=== PATIENT | male | born 1980 | race Caucasian/White ===

== ENCOUNTER 2021-03-18 23:53 | Emergency (ER) | payer BC, MEDICAID ==
[2021-03-18] MEDS ORDERED: Acetaminophen/HYDROcodone 325-5 MG Tab PO ONE (23:54)
[2021-03-19] MEDS ORDERED: Ketorolac 30 MG/ML SDV IVPUSH ONE (00:04)
[2021-03-19] MEDS ORDERED: Ondansetron 4 MG/2 ML SDV IVPUSH ONE (00:04)
--- NOTE | 2021-03-19 00:09 | EDM.PDOC ---
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, no work x 2d d/t pain here with sig other soft daily BM without change no dysuria, no freq no f/c/d feels fine otherwise h/o migraines, none x 6m, on propranolol in past no daily meds RIH repair in past, did have bone graft from R pelvis to R knee - Related Data Allergies Allergy/AdvReac Type Severity Reaction Status Date / Time No Known Allergies Allergy Verified 03/19/21 00:56 Home Meds: Home Meds Hydrocodone/Acetaminophen [Hydrocodon-Acetaminophen 5-325] 1 each PO Q6H PRN #12 tablet 03/19/21 [Rx] ED ROS GENERAL - Review of Systems Review Of Systems: See Below Constitutional: Reports: No Symptoms HEENT: Reports: No Symptoms Respiratory: Reports: No Symptoms Cardiovascular: Reports: No Symptoms Endocrine: Reports: No Symptoms GI/Abdominal: Reports: Abdominal Pain, Nausea. Denies: Vomiting : Reports: No Symptoms Musculoskeletal: Reports: No Symptoms Skin: Reports: No Symptoms Neurological: Reports: No Symptoms Psychiatric: Reports: No Symptoms Hematologic/Lymphatic: Reports: No Symptoms Immunologic: Reports: No Symptoms ED EXAM, GI/ABD - Physical Exam Exam: See Below Exam Limited By: No Limitations General Appearance: Alert, WD/WN, No Apparent Distress Nose: Normal Inspection Throat/Mouth: Normal Inspection, Normal Lips Head: Atraumatic, Normocephalic Neck: Normal Inspection, Supple, Non-Tender, Full Range of Motion. No: Lymphadenopathy (R), Lymphadenopathy (L) Respiratory/Chest: No Respiratory Distress, Lungs Clear, Normal Breath Sounds Cardiovascular: Regular Rate, Rhythm, No Edema, No Murmur GI/Abdominal Exam: Soft, No Distention, Other (1+ tender at L flank and under L SCM to midline, NT lower abd, NT in R flank) Extremities: Normal Inspection, Normal Range of Motion, No Pedal Edema Neurological: Alert, Oriented, CN II-XII Intact, Normal Cognition, Normal Reflexes Psychiatric: Normal Affect, Normal Mood Skin Exam: Warm, Dry, Intact, Normal Color, No Rash Lymphatic: No Adenopathy Course - Vital Signs Last Recorded V/S: Last Vital Signs Temp 36.6 C 03/19/21 00:10 Pulse 79 03/19/21 00:10 Resp 20 03/19/21 00:10 BP 160/106 H 03/19/21 00:10 Pulse Ox 97 03/19/21 00:10 - Orders/Labs/Meds Orders: Active Orders 24 hr Category Date Time Status EKG Documentation Completion [RC] ASDIRECTED Care 03/19/21 00:03 Ordered Abdomen Pelvis w Cont [CT] Stat Exams 03/19/21 00:04 Ordered Sodium Chloride 0.9% [Saline Flush] Med 03/19/21 00:35 Active 10 ml FLUSH ASDIRECTED PRN EKG 12 Lead [EK] Routine Ther 03/19/21 00:02 Ordered Medication Orders Sodium Chloride (Sodium Chloride 0.9% 10 Ml Syringe) 10 ml FLUSH ASDIRECTED PRN PRN Reason: Keep Vein Open Last Admin: 03/19/21 02:33 Dose: 10 ml Documented by: Admin: 03/19/21 00:37 Dose: 10 ml Documented by: FRANCISCA Labs: Laboratory Tests 03/19/21 03/19/21 03/19/21 Range/Units 00:20 00:20 00:20 WBC 7.6 (3.2-10.1) x10-3/uL RBC 4.88 (3.90-5.90) x10(6)uL Hgb 15.4 (12.9-17.7) g/dL Hct 44.9 (38.3-50.1) % MCV 92.1 (80.8-98.7) fL MCH 31.6 (27.0-33.3) pg MCHC 34.3 (28.7-35.3) g/dL RDW 12.4 (12.4-15.0) % Plt Count 204 (117-477) x10(3)uL MPV 9.2 (6.7-11.0) fL Neut % (Auto) 55.2 (40.3-71.8) % Lymph % (Auto) 32.7 (15.8-45.3) % [place]min[place] % (Auto) 8.9 (5.5-15.2) % Eos % (Auto) 2.8 (0.1-6.8) % Baso % (Auto) 0.4 (0.3-3.8) % Neut # (Auto) 4.2 (1.7-6.9) x10-3/uL Lymph # (Auto) 2.5 (0.5-4.5) x10-3/uL Mcminn # (Auto) 0.7 (0.0-1.2) x10-3/uL Eos # (Auto) 0.2 (0.0-0.6) x10-3/uL Baso # (Auto) 0.0 (0.0-0.3) x10-3/uL Sodium 139 (135-145) mmol/L Potassium 4.4 (3.5-5.3) mmol/L Chloride 102 (100-110) mmol/L Carbon Dioxide 25 (21-32) mmol/L BUN 10 (7-18) mg/dL Creatinine 1.1 (0.70-1.30) mg/dL Est Cr Clr Drug Dosing TNP Estimated GFR (MDRD) > 60 (>60) BUN/Creatinine Ratio 9.1 (9-20) Glucose 102 (80-116) mg/dL Calcium 8.5 L (8.6-10.2) mg/dL Total Bilirubin 0.5 (0.1-1.3) mg/dL AST 21 (5-25) IU/L ALT 58 H (12-36) U/L Alkaline Phosphatase 54 L (56-112) IU/L Troponin I < 4.0 L (4.0-60.3) pg/mL C-Reactive Protein 0.4 L (0.5-0.9) mg/dL Total Protein 7.4 (6.0-8.0) g/dL Albumin 3.9 (3.5-5.2) g/dL Globulin 3.5 g/dL Albumin/Globulin Ratio 1.1 Lipase 196 (73-393) U/L Urine Color (YELLOW) Urine Appearance (CLEAR) Urine pH (5.0-6.5) Ur Specific [place] (1.010-1.025) Urine Protein (NEGATIVE) mg/dL Urine Glucose (UA) (NORMAL) mg/dL Urine Ketones (NEGATIVE) mg/dL Urine Occult Blood (NEGATIVE) Urine Nitrite (NEGATIVE) Urine Bilirubin (NEGATIVE) Urine Urobilinogen (NEGATIVE) mg/dL Ur Leukocyte Esterase (NEGATIVE) Urine RBC (0-5) Urine WBC (0-5) Ur Squamous Epith Cells (NS,R,O) Urine Bacteria (NS) 03/19/21 Range/Units 01:00 WBC (3.2-10.1) x10-3/uL RBC (3.90-5.90) x10(6)uL Hgb (12.9-17.7) g/dL Hct (38.3-50.1) % MCV (80.8-98.7) fL MCH (27.0-33.3) pg MCHC (28.7-35.3) g/dL RDW (12.4-15.0) % Plt Count (117-477) x10(3)uL MPV (6.7-11.0) fL Neut % (Auto) (40.3-71.8) % Lymph % (Auto) (15.8-45.3) % [place]min[place] % (Auto) (5.5-15.2) % Eos % (Auto) (0.1-6.8) % Baso % (Auto) (0.3-3.8) % Neut # (Auto) (1.7-6.9) x10-3/uL Lymph # (Auto) (0.5-4.5) x10-3/uL [place] # (Auto) (0.0-1.2) x10-3/uL Eos # (Auto) (0.0-0.6) x10-3/uL Baso # (Auto) (0.0-0.3) x10-3/uL Sodium (135-145) mmol/L Potassium (3.5-5.3) mmol/L Chloride (100-110) mmol/L Carbon Dioxide (21-32) mmol/L BUN (7-18) mg/dL Creatinine (0.70-1.30) mg/dL Est Cr Clr Drug Dosing Estimated GFR (MDRD) (>60) BUN/Creatinine Ratio (9-20) Glucose (80-116) mg/dL Calcium (8.6-10.2) mg/dL Total Bilirubin (0.1-1.3) mg/dL AST (5-25) IU/L ALT (12-36) U/L Alkaline Phosphatase (56-112) IU/L Troponin I (4.0-60.3) pg/mL C-Reactive Protein (0.5-0.9) mg/dL Total Protein (6.0-8.0) g/dL Albumin (3.5-5.2) g/dL Globulin g/dL Albumin/Globulin Ratio Lipase (73-393) U/L Urine Color Yellow (YELLOW) Urine Appearance Clear (CLEAR) Urine pH 5.0 (5.0-6.5) Ur Specific [place] 1.020 (1.010-1.025) Urine Protein Negative (NEGATIVE) mg/dL Urine Glucose (UA) Normal (NORMAL) mg/dL Urine Ketones Negative (NEGATIVE) mg/dL Urine Occult Blood Negative (NEGATIVE) Urine Nitrite Negative (NEGATIVE) Urine Bilirubin Negative (NEGATIVE) Urine Urobilinogen Normal (NEGATIVE) mg/dL Ur Leukocyte Esterase Negative (NEGATIVE) Urine RBC 0-5 (0-5) Urine WBC 0-5 (0-5) Ur Squamous Epith Cells Occasional (NS,R,O) Urine Bacteria Few H (NS) Meds: Medications Generic Name Dose Route Start Last Admin Trade Name Reynold PRN Reason Stop Dose Admin Sodium Chloride 10 ml 03/19/21 00:35 03/19/21 02:33 Sodium Chloride 0.9% 10 Ml Syringe FLUSH 10 ml ASDIRECTED PRN Administration Keep Vein Open Discontinued Medications Generic Name Dose Route Start Last Admin Trade Name Reynold PRN Reason Stop Dose Admin Iopamidol 100 ml 03/19/21 00:56 03/19/21 01:18 Iopamidol 755 Mg/Ml 100 Ml Bottle IV 03/19/21 00:57 100 ml . DIRECTED ONE Administration Ketorolac Tromethamine 30 mg 03/19/21 00:04 03/19/21 00:35 Ketorolac 30 Mg/Ml Sdv IVPUSH 03/19/21 00:05 30 mg ONETIME ONE Administration Morphine Sulfate 2 mg 03/19/21 02:27 03/19/21 02:31 Morphine 2 Mg/Ml Syringe IVPUSH 03/19/21 02:28 2 mg ONETIME ONE Administration Ondansetron HCl 4 mg 03/19/21 00:04 03/19/21 00:31 Ondansetron 4 Mg/2 Ml Sdv IVPUSH 03/19/21 00:05 4 mg ONETIME ONE Administration - Re-Assessments/Exams Free Text/Narrative Re-Assessment/Exam: 03/19/21 03:43 9.1 cm central mesenteric mass d/w Dr Rubi re possible exp lap for bx, he suggested d/w Alfred d/w Dr Silver Hitchcock IR, who said he would need a referral from PCP or oncologist d/w Dr Landin Hitchcock onc, who said he would contact a couple of people in 2d on Sunday and review the images as to whether a surgeon vs IR was needed to obtain tissue no relief with Toradol, excellent relief with MS 2 mg IV send home with 4 tabs of hc/apap 5/325 and given rx for 12 tabs of same long d/w pt and re all of these issues Departure - Departure Time of Disposition: 03:36 Disposition: Home, Self-Care 01 Condition: Good Clinical Impression: Mesenteric mass, Abdominal pain - Discharge Information *PRESCRIPTION DRUG MONITORING PROGRAM REVIEWED*: Not Applicable *COPY OF PRESCRIPTION DRUG MONITORING REPORT IN PATIENT BLANCHE: Not Applicable Prescriptions: Hydrocodone/Acetaminophen [Hydrocodon-Acetaminophen 5-325] 1 each PO Q6H PRN #12 tablet PRN Reason: Pain Forms: ED Return to Work/School Form Additional Instructions: For pain, take hydrocodone with acetaminophen 5/325 mg 1 tab every 6 hours as needed. May continue regular activities if you are well rested and feeling well. Dr Landin, oncologist, will call you on Sunday regarding next steps to obtaining a biopsy. Call his office at [phone] if you have not heard from him by late afternoon on Sunday. Schedule an appointment with your PCP, Nimo Castillo, at the [facility] next week for referrals and coordination of care. Dr Silver, interventional radiologist, was also contacted regarding possible need for a needle biopsy of the mesenteric mass. His office number is [phone]. Call or return to the Emergency Department here if you are feeling worse or having pain that is not controlled by meds at home. Sepsis Event Note (ED) - Focused Exam Vital Signs: Vital Signs Temp Pulse Resp BP Pulse Ox 03/19/21 00:10 36.6 C 79 20 160/106 H 97 - My Orders Last 24 Hours: My Active Orders 03/19/21 00:02 EKG 12 Lead [EK] Routine 03/19/21 00:03 EKG Documentation Completion [RC] ASDIRECTED 03/19/21 00:04 Abdomen Pelvis w Cont [CT] Stat 03/19/21 00:35 Sodium Chloride 0.9% [Saline Flush] 10 ml FLUSH ASDIRECTED PRN - Assessment/Plan Last 24 Hours: My Active Orders 03/19/21 00:02 EKG 12 Lead [EK] Routine 03/19/21 00:03 EKG Documentation Completion [RC] ASDIRECTED 03/19/21 00:04 Abdomen Pelvis w Cont [CT] Stat 03/19/21 00:35 Sodium Chloride 0.9% [Saline Flush] 10 ml FLUSH ASDIRECTED PRN
[2021-03-19] MEDS: Sodium Chloride 0.9% 10 ML Syringe FLUSH PRN ×2 (00:37→02:33)
[2021-03-19] MEDS ORDERED: Iopamidol 755 Mg/ML 100 ML Bottle IV ONE (00:56)
[2021-03-19] MEDS ORDERED: Morphine 2 MG/ML SYRINGE IVPUSH ONE ×2 (02:27→03:51)
== END 2021-03-19 04:00 | disposition home or self-care (01) ==
LOC: FB.ED 23:53
DX: K63.89 Other specified diseases of intestine (principal)
CPT/HCPCS: 36415; 74177; 80053; 81001; 83690; 84484; 85025; 86140; 93005; 96374; 96375; 99284; A9270; J1885; J2270; J2405; Q9967

== ENCOUNTER 2024-11-16 17:19 | Emergency (ER) | payer BC, MEDICAID ==
[2024-11-16 18:16] LABS: BASOPHILS PERCENT AUTO 0.5 % (0.3-3.8); EOSINOPHILS ABSOLUTE AUTO 0.7 x10-3/uL (0.0-0.6); EOSINOPHILS PERCENT AUTO 9.1 % (0.1-6.8); HEMATOCRIT 45.6 % (38.3-50.1); HEMOGLOBIN 15.8 g/dL (12.9-17.7); LYMPHOCYTES PERCENT AUTO 25.5 % (15.8-45.3); MEAN CORPUSCULAR HEMOGLOBIN 32.2 pg (27.0-33.3); MEAN CORPUSCULAR HGB CONC 34.7 g/dL (28.7-35.3); MEAN CORPUSCULAR VOLUME 92.9 fL (80.8-98.7); MEAN PLATELET VOLUME 8.2 fL (6.7-11.0); MONOCYTES ABSOLUTE AUTO 0.6 x10-3/uL (0.0-1.2); NEUTROPHILS ABSOLUTE AUTO 4.6 x10-3/uL (1.7-6.9); NEUTROPHILS PERCENT AUTO 57.9 % (40.3-71.8); PLATELET COUNT,PLT 178 x10(3)uL (117-477); RED BLOOD CELL COUNT 4.91 x10(6)uL (3.90-5.90); RED CELL DISTRIBUTION WIDTH 12.7 % (12.4-15.0)
[2024-11-16 18:19] LABS: BLOOD UREA NITROGEN,BUN 10 mg/dL (7-18); CALCIUM 8.9 mg/dL (8.6-10.2); CARBON DIOXIDE,CO2 28 mmol/L (21-32); CHLORIDE,CL 105 mmol/L (100-110); ESTIMATED GFR 95 mL/min (>60); GLUCOSE RANDOM 100 mg/dL (80-116); POTASSIUM,K 3.8 mmol/L (3.5-5.3); SODIUM,NA 142 mmol/L (135-145)
[2024-11-16 18:25] LABS: A/G RATIO 1.4; ALANINE AMINOTRANSFERASE,ALT 47 U/L (12-36); ALBUMIN 4.2 g/dL (3.5-5.2); ALKALINE PHOSPHATASE 74 IU/L (56-112); ASPARTATE AMNIOTRANSFERASE,AST 18 IU/L (5-25); BILIRUBIN TOTAL 0.3 mg/dL (0.1-1.3); PROTEIN TOTAL,TP 7.2 g/dL (6.0-8.0)
[2024-11-16] MEDS: Iopamidol 755 Mg/ML 100 ML Bottle IV SCH (18:36)
== END 2024-11-16 19:15 | disposition home or self-care (01) ==
LOC: FB.ED 17:19
DX: K52.9 Noninfective gastroenteritis and colitis, unspecified (principal); F17.210 Nicotine dependence, cigarettes, uncomplicated; Z79.899 Other long term (current) drug therapy
CPT/HCPCS: 74177; 80053; 83690; 85025; 99284; Q9967; 99283